=== PATIENT | female | born 1950 | race Caucasian/White ===

== ENCOUNTER 2024-12-02 07:30 | Inpatient (IN) | payer MEDICARE, OTHER ==
[~2024-12-02] VITALS: Ht 154.9 cm; Wt 69.9 kg
[2024-12-02] MEDS ORDERED: LIDOCAINE 2%-EPI 1:100,000 30 ML VIAL ONE (12:06)
[2024-12-02] MEDS ORDERED: dexaMETHasone SOD PHOSPHATE 2 ML ONE (12:06)
[2024-12-02] MEDS ORDERED: VANCOMYCIN 1 GM VIAL ONE (12:06)
[2024-12-02] MEDS ORDERED: LABETALOL HCL IV 100MG VIAL ONE (12:11)
[2024-12-02 16:00] VITALS: BP 140/78; TEMP 97.7; O2SAT 99
[2024-12-02 16:59] VITALS: BP 140/78; TEMP 97.7; O2SAT 99
[2024-12-02] MEDS ORDERED: IV NS 0.9% 1,000 ML IV PRN (17:30)
[2024-12-02] MEDS ORDERED: ACETAMINOPHEN 325 MG TABLET PO PRN (17:30)
[2024-12-02] MEDS ORDERED: ONDANSETRON HCL/PF 4 MG/2 ML VIAL IVP PRN (17:30)
[2024-12-02] MEDS ORDERED: HYDROMORPHONE 1 MG/1 ML DISP.SYRIN IV PRN (17:30)
[2024-12-02 20:00] VITALS: BP 129/74; TEMP 98.1; O2SAT 94
[2024-12-03] MEDS: VANCOMYCIN 1 GM in IV D5W 250ml IV SCH (00:18)
== END 2024-12-03 10:15 | disposition home or self-care (01) | DRG 497 ==
LOC: DS 07:30 → MED 13:39
PROVIDERS: ADMIT Internal Medicine; ATTEND Internal Medicine
PROC: 0N5T0ZZ Destruction of Right Mandible, Open Approach (ICD-10-PCS; 2024-12-02)
PROC: 0N5V0ZZ Destruction of Left Mandible, Open Approach (ICD-10-PCS; 2024-12-02)
PROC: 0NSV04Z Reposition Left Mandible with Internal Fixation Device, Open Approach (ICD-10-PCS; 2024-12-02)
PROC: 0NST04Z Reposition Right Mandible with Internal Fixation Device, Open Approach (ICD-10-PCS; 2024-12-02)
PROC: 0NUV07Z Supplement Left Mandible with Autologous Tissue Substitute, Open Approach (ICD-10-PCS; 2024-12-02)
PROC: 0NUR07Z Supplement Maxilla with Autologous Tissue Substitute, Open Approach (ICD-10-PCS; 2024-12-02)
PROC: 0NUT07Z Supplement Right Mandible with Autologous Tissue Substitute, Open Approach (ICD-10-PCS; 2024-12-02)
PROC: 0N5R0ZZ Destruction of Maxilla, Open Approach (ICD-10-PCS; 2024-12-02)
PROC: 0NSR04Z Reposition Maxilla with Internal Fixation Device, Open Approach (ICD-10-PCS; principal; 2024-12-02 10:15)
DX: S02.40CK Maxillary fracture, right side, subsequent encounter for fracture with nonunion (principal); S02.40DK Maxillary fracture, left side, subsequent encounter for fracture with nonunion; S02.69XK Fracture of mandible of other specified site, subsequent encounter for fracture with nonunion; M27.2 Inflammatory conditions of jaws; M27.49 Other cysts of jaw; D16.4 Benign neoplasm of bones of skull and face; J32.0 Chronic maxillary sinusitis; X58.XXXD Exposure to other specified factors, subsequent encounter
CPT/HCPCS: A4223; A4338; C1713; G0378; J1100; J2704; J3370; J3490; J7030; J7050; J7060

== ENCOUNTER 2025-05-11 06:35 | Inpatient (IN) | payer MEDICARE, OTHER ==
[~2025-05-11] VITALS: Ht 162.6 cm; Wt 64.0 kg
[2025-05-11] MEDS ORDERED: ROCURONIUM BROMIDE 50 MG/5 ML ONE (07:21)
[2025-05-11] MEDS ORDERED: FENTANYL PF 250MCG/5ML AMPUL ONE (07:21)
[2025-05-11] MEDS ORDERED: VANCOMYCIN 1 GM VIAL ONE (07:26)
[2025-05-11] MEDS ORDERED: LIDOCAINE 2%-EPI 1:100,000 30 ML VIAL ONE (07:26)
[2025-05-11] MEDS ORDERED: OXYMETAZOLINE HCL NASAL SPRAY 30 ML BOTTLE NS ONE (07:26)
[2025-05-11] MEDS ORDERED: dexaMETHasone SOD PHOSPHATE 2 ML ONE (07:26)
[2025-05-11] MEDS ORDERED: LABETALOL HCL IV 100MG VIAL ONE (08:00)
[2025-05-11 10:10] VITALS: BP 140/75; TEMP 97.8; O2SAT 97
[2025-05-11] MEDS ORDERED: ACETAMINOPHEN W/ CODEINE#3 1 EA TABLET PO PRN (11:00)
[2025-05-11] MEDS ORDERED: MAG HYDROX/AL HYDROX/SIMETH 30 ML UDC PO PRN (11:00)
[2025-05-11] MEDS ORDERED: ONDANSETRON HCL/PF 4 MG/2 ML VIAL IVP PRN ×2 (11:00→13:30)
[2025-05-11] MEDS ORDERED: MAGNESIUM HYDROXIDE 30 ML UDC PO PRN (11:00)
[2025-05-11] MEDS ORDERED: ACETAMINOPHEN 325 MG TABLET PO PRN (11:00)
[2025-05-11] MEDS ORDERED: MORPHINE SULFATE INJ 4 MG/ML DISP.SYRIN IV PRN (12:30)
[2025-05-11] MEDS ORDERED: IV NS 0.9% 1,000 ML BAG IV PRN (13:00)
[2025-05-11] MEDS: IV NS 0.9% 1,000 ML IV PRN (13:06)
[2025-05-11] MEDS ORDERED: HYDROMORPHONE 1 MG/1 ML DISP.SYRIN IV PRN (13:30)
[2025-05-11 16:00] VITALS: BP 110/66; TEMP 97.9; O2SAT 95
[2025-05-11 20:00] VITALS: BP 98/62; TEMP 97.5; O2SAT 95
[2025-05-11] MEDS: VANCOMYCIN 1 GM in IV D5W 250ml IV SCH (20:32)
[2025-05-11 21:48] VITALS: BP 98/62; TEMP 97.5; O2SAT 95
[2025-05-12 06:26] LABS: PLATELET COUNT (AUTO) 197 K/uL (150-450); RED BLOOD CELL COUNT(AUTO) 3.95 MIL/uL (4.0-5.2); RED CELL DISTRIBUTION WIDTH 14.1 % (11.5-15.0); WHITE BLOOD COUNT (AUTO) 6.4 K/uL (4.3-11.0)
[2025-05-12 06:41] LABS: CALCIUM, SERUM 8.8 mg/dL (8.5-10.1); CREATININE 0.7 mg/dL (0.6-1.3); PHOSPHORUS 4.1 mg/dL (2.5-4.9); SODIUM SERUM 145.0 mmol/L (136-145); UREA NITROGEN, BLOOD 14.0 mg/dL (7-18)
[2025-05-12 08:27] VITALS: BP 90/60; TEMP 97.5; O2SAT 98
[2025-05-12] MEDS: PANTOPRAZOLE 40 MG VIAL IV SCH (08:55)
== END 2025-05-12 14:25 | disposition home or self-care (01) | DRG 908 ==
LOC: DS 06:35 → MED 09:27
PROVIDERS: ADMIT Nurse Practitioner Family; ATTEND Nurse Practitioner Family
PROC: 0NUR07Z Supplement Maxilla with Autologous Tissue Substitute, Open Approach (ICD-10-PCS; 2025-05-11)
PROC: 0NPW07Z Removal of Autologous Tissue Substitute from Facial Bone, Open Approach (ICD-10-PCS; 2025-05-11)
PROC: 0NBT0ZZ Excision of Right Mandible, Open Approach (ICD-10-PCS; 2025-05-11)
PROC: 0N5R0ZZ Destruction of Maxilla, Open Approach (ICD-10-PCS; 2025-05-11)
PROC: 0NPW04Z Removal of Internal Fixation Device from Facial Bone, Open Approach (ICD-10-PCS; 2025-05-11)
PROC: 0NBV0ZZ Excision of Left Mandible, Open Approach (ICD-10-PCS; 2025-05-11)
PROC: 0NSR04Z Reposition Maxilla with Internal Fixation Device, Open Approach (ICD-10-PCS; principal; 2025-05-11 07:30)
DX: T86.831 Bone graft failure (principal); M87.9 Osteonecrosis, unspecified; S02.40CK Maxillary fracture, right side, subsequent encounter for fracture with nonunion; T84.69XA Infection and inflammatory reaction due to internal fixation device of other site, initial encounter; Y92.009 Unspecified place in unspecified non-institutional (private) residence as the place of occurrence of the external cause; X58.XXXD Exposure to other specified factors, subsequent encounter; Y83.2 Surgical operation with anastomosis, bypass or graft as the cause of abnormal reaction of the patient, or of later complication, without mention of misadventure at the time of the procedure; D16.4 Benign neoplasm of bones of skull and face
CPT/HCPCS: 36415; 80048-TC; 83735-TC; 84100-TC; 85025-TC; A4217; A4223; A4338; C1713; G0378; J0461; J0690; J1100; J1644; J2470; J2704; J3010; J3373; J3490; J7030; J7060; Q0163